=== PATIENT | female | born 1955 | race Caucasian/White ===

== ENCOUNTER 2017-03-05 07:00 | Inpatient (IN) | payer OTHER ==
[~2017-03-05] VITALS: Ht 168 cm; Wt 72.0 kg
[2017-03-06 05:54] LABS: HCT 35.6 % (37.0-47.0); HGB 11.7 g/dl (12.5-16.0); MCHC 32.9 g/dL (32.0-36.0); MCV 94.4 fL (78.0-100.0); MPV 10.8 fL (6.0-9.5); RBC 3.77 M/uL (4.20-5.40); RDW 13.1 % (11.5-14.0); WBC 16.1 K/uL (4.0-10.5)
[2017-03-06 06:48] LABS: ALBUMIN 3.4 g/dL (3.4-4.8); BILIRUBIN - TOTAL 0.4 mg/dL (0.1-1.0); CREATININE 0.8 mg/dL (0.5-1.0); GLOBULIN (CALCULATION) 2.1 g/dL (2.2-4.2); POTASSIUM 4.2 mmol/L (3.5-5.1); TOTAL PROTEIN 5.5 g/dL (6.4-8.3)
[2017-03-06 23:16] LABS: BILIRUBIN NEGATIVE (NEGATIVE); BLOOD TRACE-INTACT Ery/uL (NEGATIVE); CLARITY CLEAR (CLEAR); COLOR STRAW (YELLOW); GLUCOSE (U) NORMAL (NORMAL); KETONE (U) NEGATIVE (NEGATIVE); LEUKOCYTES NEGATIVE Leu/uL (NEGATIVE); NITRITE NEGATIVE (NEGATIVE); PROTEIN NEGATIVE (NEGATIVE); SPECIFIC GRAVITY <=1.005 (1.001-1.030); UROBILINOGEN 0.2 mg/dL (0.2-1.0); pH 6.5 (5.0-9.0)
[2017-03-07 05:12] LABS: HCT 32.8 % (37.0-47.0); HGB 10.9 g/dl (12.5-16.0); MCH 31.2 pg (25.0-31.0); MCHC 33.2 g/dL (32.0-36.0); MPV 10.7 fL (6.0-9.5); RBC 3.49 M/uL (4.20-5.40); RDW 12.8 % (11.5-14.0); WBC 9.6 K/uL (4.0-10.5)
[2017-03-07 05:43] LABS: ALBUMIN 3.4 g/dL (3.4-4.8); BILIRUBIN - TOTAL 0.4 mg/dL (0.1-1.0); CREATININE 0.7 mg/dL (0.5-1.0); GLOBULIN (CALCULATION) 1.9 g/dL (2.2-4.2); POTASSIUM 3.8 mmol/L (3.5-5.1); TOTAL PROTEIN 5.3 g/dL (6.4-8.3)
[2017-03-08 05:20] LABS: HGB 11.7 g/dl (12.5-16.0); MCH 31.1 pg (25.0-31.0); MCHC 33.4 g/dL (32.0-36.0); MCV 93.1 fL (78.0-100.0); MPV 10.5 fL (6.0-9.5); RBC 3.76 M/uL (4.20-5.40); RDW 12.8 % (11.5-14.0)
== END 2017-03-08 13:43 | disposition home health service (06) | DRG 470 ==
LOC: FMS 07:00
PROVIDERS: Internal Medicine; ADMIT Orthopaedic Surgery
PROC: 8E0YXBZ Computer Assisted Procedure of Lower Extremity (ICD-10-PCS; 2017-03-05)
PROC: 0SRD0J9 Replacement of Left Knee Joint with Synthetic Substitute, Cemented, Open Approach (ICD-10-PCS; principal; 2017-03-05 09:30)
DX: M17.12 Unilateral primary osteoarthritis, left knee (principal); D62 Acute posthemorrhagic anemia; M21.162 Varus deformity, not elsewhere classified, left knee; M24.562 Contracture, left knee; F17.210 Nicotine dependence, cigarettes, uncomplicated; J45.909 Unspecified asthma, uncomplicated; Z79.899 Other long term (current) drug therapy; E05.90 Thyrotoxicosis, unspecified without thyrotoxic crisis or storm; K21.9 Gastro-esophageal reflux disease without esophagitis; D72.829 Elevated white blood cell count, unspecified; Z88.0 Allergy status to penicillin
CPT/HCPCS: 36415; 71010; 73560; 80053; 81003; 86850; 86900; 86901; 87040; 88305; 88311; 94010; 94760; 94762; 97110; 97116; 97162; 97165; 97530; 97530-GP; 97535; C1713; C1776; J0131; J1100; J1170; J1885; J2270; J2405; J2704; J2795; J3010